=== PATIENT | female | born 1975 | race Caucasian/White ===

== ENCOUNTER 2018-02-26 10:21 | Day surgery (SDC) | payer BC, OTHER ==
[2018-02-26] MEDS ORDERED: PROPOFOL 10 MG/ML VIAL IV ONE (10:22)
[2018-02-26] MEDS ORDERED: MIDAZOLAM HCL 2MG/2ML VIAL IV ONE (10:22)
[2018-02-26] MEDS ORDERED: ROCURONIUM BROMIDE 50MG/5ML VIAL IV ONE (10:22)
[2018-02-26] MEDS ORDERED: SEVOFLURANE 250 ML INH ONE (10:22)
[2018-02-26] MEDS ORDERED: SUCCINYLCHOLINE 20 MG/ML 10ML IVP ONE (10:22)
[2018-02-26] MEDS ORDERED: BUPIVACAINE 0.25% W/EPI MPF 30ML VIAL IVP ONE (10:22)
[2018-02-26] MEDS ORDERED: LIDOCAINE 2% MDV (20MG/ML) 20ML VIAL IV ONE (10:22)
[2018-02-26] MEDS ORDERED: ONDANSETRON HCL IV 4 MG/2 ML VIAL IVP ONE ×2 (10:22→11:50)
[2018-02-26] MEDS ORDERED: FENTANYL PF 100MCG/2ML VIAL IV ONE (10:22)
[2018-02-26] MEDS ORDERED: NEOSTIGMINE 1 MG/1 ML,10ML VIAL IV ONE (10:22)
[2018-02-26] MEDS ORDERED: GLYCOPYRROLATE 0.2 MG/ML ML IV ONE (10:22)
[2018-02-26] MEDS ORDERED: DEXAMETHASONE 4 MG/ML 1ML VIAL IVP ONE (10:22)
[2018-02-26] MEDS ORDERED: ONDANSETRON HCL IV 4 MG/2 ML VIAL IV ONE (10:33)
[2018-02-26] MEDS ORDERED: 0.9 % SODIUM CHLORIDE 1,000 ML BAG IV ONE (10:33)
[2018-02-26] MEDS ORDERED: KETOROLAC 30 MG/ML VIAL IVP ONE (10:35)
--- NOTE | 2018-02-26 10:37 | Emergency Department Record ---
History of Present Illness - General Chief Complaint: Abdominal Pain Stated Complaint: ABD PAIN Time Seen by Provider: 02/26/18 10:29 Source: Patient Mode of Arrival: Ambulatory Limitations: No limitations - History of Present Illness Initial Comments: The patient is here due to AP for 2 days. At the onset 2 days ago the pain was all over and over the last 2 days it has migrated to the RLQ. She did have some loose stools 2 days ago but none since. The patient also felt she had a fever yesterday with mild vomiting. She denies any hx of any abdominal surgeries. The patient was seen at the and was found to have a WBC of 19K so she was sent to the ER for further evaluation. MD Complaint: Abdominal pain Onset/Timin -: Days(s) Location: RLQ Radiation: Back Severity: Moderate Severity scale (1-10): 7 Quality: Cramping, Sharp Consistency: Constant, Intermittent Improves With: Nothing Worsens With: Nothing Associated Symptoms: Chills, Diarrhea, Fever, Nausea, Vomiting - Related Data LMP Date: 02/05/18 Previous Rx's Medication Instructions Recorded Albuterol Sulfate 0.083% [Neb] 3 ml NEB .EVERY 4-6 HOURS PRN #120 16/15 ml Albuterol Sulfate [Proair Hfa] 1 - 2 puff IH .EVERY 4-6 HOURS PRN 04/22/15 #1 inhaler Benzonatate [Tessalon] 1 cap PO Q8H PRN #30 cap 16/15 Allergies Allergy/AdvReac Type Severity Reaction Status Date / Time codeine AdvReac Intermediate VOMITING Verified 02/26/18 11:26 Travel Screening - Travel/Exposure Within Last 30 Days Have you traveled within the last 30 days?: No Review of Systems Constitutional: Denies: Chills, Fever Eyes: Denies: Eye discharge ENT: Denies: Congestion Respiratory: Denies: Cough, Dyspnea Past Medical History - SOCIAL HISTORY Smoking Status: Former smoker Alcohol Use: None Drug Use: None - RESPIRATORY Hx Respiratory Disorders: Yes Hx Asthma: Yes Hx Bronchitis: Yes Hx Pneumonia: Yes - CARDIOVASCULAR Hx Cardio Disorders: No - NEURO Hx Neuro Disorders: No - GI Hx GI Disorders: Yes Hx Irritable Bowel: Yes - Hx Genitourinary Disorders: Yes Hx Kidney Stones: Yes - ENDOCRINE Hx Endocrine Disorders: No - MUSCULOSKELETAL Hx Musculoskeletal Disorders: Yes Hx Arthritis: Yes (low back) Hx Back Injury: Yes - PSYCH Hx Psych Problems: Yes Hx Anxiety: Yes Hx Depression: Yes - HEMATOLOGY/ONCOLOGY Hx Hematology/Oncology Disorders: No Family Medical History Any Significant Family History?: Yes Hx Cancer: Father, Brother/Sister Hx Heart Disease: Grandparents Hx HTN: Grandparents Hx Resp Disorders: Father, Mother, Grandparents Physical Exam - General General Appearance: Alert, Oriented x3, Cooperative, No acute distress - Head Head exam: Atraumatic, Normocephalic, Normal inspection - Eye Eye exam: Normal appearance, PERRL - Neck Neck exam: Normal inspection, Full ROM. negative: Tenderness - Respiratory Respiratory exam: Normal lung sounds bilaterally. negative: Respiratory distress - Cardiovascular Cardiovascular Exam: Regular rate, Normal rhythm, Normal heart sounds - GI/Abdominal GI/Abdominal exam: Diminished bowel sounds, Guarding, Tenderness (There is significant RLQ tenderness.). negative: Normal bowel sounds, Rebound, Rigid - Extremities Extremities exam: Normal inspection, Full ROM, Normal capillary refill. negative: Tenderness - Neurological Neurological exam: Alert. negative: Motor sensory deficit Course Vital Signs 02/26/18 10:25 Temperature 97.8 F Pulse Rate 90 Respiratory 20 Rate Blood Pressure 118/81 Pulse Ox 99 - Reevaluation(s) Reevaluation #1: I did discuss the CT results with the patient and the need for consultation with a gen surgeon. 02/26/18 11:32 Medical Decision Making - Data Complexity MDM Data: Labs Ordered and/or Reviewed, X-Ray Ordered and/or Reviewed - Radiology Data Radiology results: Report reviewed (CT: Positive for Appendicitis. Neg for perforation or abscess.) Disposition Disposition: Admit Clinical Impression: Appendicitis Qualifiers: Appendicitis type: acute appendicitis Acute appendicitis type: unspecified acute appendicitis type Qualified Code(s): K35.80 - Unspecified acute appendicitis Disposition: Still a Patient at [facility] Decision to Admit: Admit from ER Decision to Admit Date: 02/26/18 Decision to Admit Time: 13:20 Accepting Physician: De[place] Time Discussed w/Accepting Physician: 13:20 Condition: (2) Stable Forms: Patient Portal Access Time of Disposition: 13:20 Quality - Quality Measures Quality Measures: N/A - Blood Pressure Screening View Details: Yes Does Patient Have Any of the Following: No Blood Pressure Classification: Pre-Hypertensive BP Reading Systolic Measurement: 118 Diastolic Measurement: 81 Screening for High Blood Pressure: < Pre-Hypertensive BP, F/U Documented > [ G8950] Pre-Hypertensive Follow-up Interventions: Referral to alternative/primary care provider.
[2018-02-26 10:45] LABS: URINE BILIRUBIN NEGATIVE (NEGATIVE); URINE BLOOD NEGATIVE (NEGATIVE); URINE GLUCOSE (UA) NEGATIVE (NEGATIVE); URINE KETONE NEGATIVE (NEGATIVE); URINE LEUKOCYTE ESTERASE NEGATIVE (NEGATIVE); URINE NITRITE NEGATIVE (NEGATIVE); URINE PROTEIN NEGATIVE (NEGATIVE); URINE UROBILINOGEN 0.2 E.U./dL (0.20 - 1.00)
[2018-02-26 10:46] LABS: URINE APPEARANCE CLEAR; URINE COLOR YELLOW
[2018-02-26 10:48] LABS: HCG,QUALITATIVE URINE NEGATIVE (NEGATIVE)
[2018-02-26] MEDS ORDERED: ERTAPENEM SODIUM 1 G in 0.9 % SODIUM CHLORIDE 100ML 100 ML IVPB ONE (11:30)
[2018-02-26] MEDS ORDERED: HYDROMORPHONE HCL 2 MG/ML VIAL IVP ONE (11:50)
--- NOTE | 2018-02-28 09:35 | CT SCAN REPORT ---
EXAM: NONCONTRAST CT OF THE ABDOMEN AND PELVIS HISTORY: ABDOMINAL PAIN AND VOMITING, RIGHT LOWER QUADRANT PAIN. TECHNIQUE: Noncontrast CT of the abdomen and pelvis was obtained. Comparison: None. FINDINGS: Minimal lower lobe atelectasis, the lung bases are otherwise clear. Unremarkable noncontrast CT appearance of the liver, gallbladder, spleen, adrenal glands and pancreas. No hydronephrosis. No renal calculi detected. The appendix is markedly dilated measuring up 20 mm in transverse dimension, contains multiple appendicolith's with significant periappendiceal fat stranding and trace fluid. No associated abscess or free air. Layering trace free fluid in the pelvis. The stomach and small bowel are not dilated. No focal colonic thickening or inflammatory changes. Unremarkable noncontrast CT appearance of the uterus. The urinary bladder is minimally distended. The aortoiliac arterial access is minimally calcified, no evidence of aneurysm. No acute osseous findings. Lumbar spine degenerative changes, evidence of focally prominent disk degeneration at L4-L5. IMPRESSION: ACUTE APPENDICITIS. THE FINDING WAS REPORTED TO THE ORDERING PHYSICIAN DR. KRISTINA ACOSTA AT TIME OF DICTATION. JOB NUMBER: [id number] [facility]
--- NOTE | 2018-02-28 11:40 | Operative Note ---
DATE OF SURGERY: 02/26/2018 Surgeon: Oswaldo Santana D.O. Referring physician: Neptali East D.O. PREOPERATIVE DIAGNOSIS: Acute appendicitis. POSTOPERATIVE DIAGNOSIS: Acute appendicitis, nephrotic appendix. OPERATION: Laparoscopic appendectomy. Anesthesia: General. Indication: The patient is a 42-year-old female who was having about a 2 week history of abdominal pain. She was seen in [facility] ER this afternoon, where a workup was done. This did include imaging, as well as laboratory values. This did show findings consistent with acute appendicitis with an appendicolith. Her clinical exam fit the same. We discussed appendectomy, the risks, benefits, and alternatives were discussed. The risks included bleeding, infection, postop abscess formation, the need for delayed or repeat operation and she understand this fully. The consent was signed, questions were answered. PROCEDURE: She was taken to the operating room and placed in the supine position. General anesthesia was administered per the Department of Anesthesia. The patient's left arm was tucked to her side. Her abdomen was prepped and draped in sterile fashion. The infraumbilical region was anesthetized with a total of 2 mL of 0.25% Sensorcaine with epinephrine. A 2 cm infraumbilical incision was made. This was carried down to the anterior rectus fascia, this is incised. Lizz clamps were placed on the fascial edges and brought up into the wound. Stay stitches of 0 Vicryl placed. The posterior rectus sheath was identified and incised and the peritoneal cavity was entered bluntly. At this time, a 10 mm blunt Ese port was placed and a pneumoperitoneum was established. Under direct visualization, an additional 5 mm right subcostal and a 5 mm suprapubic port were placed. General exam was done. The patient's cecum was stuck to the sidewall, this was peeled down bluntly revealing a dilated thickened necrotic appendix. There was no perforation noted. She did have some purulent fluid in her pelvis. At this time, the appendix was lifted anteriorly. The mesoappendix was taken down serially with the Jacob harmonic. Once the appendicial base was reached, this was transected with the Endo KHURRAM stapling device. This was then placed in an EndoCatch bag and brought out through the umbilical port. The right lower quadrant was rechecked and found to be hemostatic. The staple line was hemostatic, there was no leaking noted. We did irrigate the pelvis with approximately 1 liter of normal saline due to some mild purulent fluid. The patient had a small right ovarian cyst as well. This was then aspirated until clear. The terminal ileum and cecum were inspected again, free of any issues. At this time the pneumoperitoneum was released. All ports removed, and the fascia was closed with 0 Vicryl in a [id number] fashion. The skin of all 3 ports closed with 4-0 Vicryl. She was taken to the recovery room in satisfactory condition. FINDINGS AT THE TIME OF SURGERY: Acute suppurative appendicitis. No ruptured abscess. CC: Dr. Neptali WALKER
== END 2018-02-26 17:08 | disposition home or self-care (01) ==
LOC: ER 10:21 → SUR 13:55
PROVIDERS: ATTEND Surgery
DX: K35.80 Unspecified acute appendicitis (principal); R11.2 Nausea with vomiting, unspecified; R19.7 Diarrhea, unspecified; R50.9 Fever, unspecified; K58.9 Irritable bowel syndrome, unspecified; M19.90 Unspecified osteoarthritis, unspecified site; Z87.891 Personal history of nicotine dependence; Z87.442 Personal history of urinary calculi
CPT/HCPCS: 44970; 00840; 99285 ×2; 96376; 96365; 96375; 82150; 83690; 80053; 81003; 81025; 85027; 74176; J1335; J1885; J2405; J3010; J1170; J0330; J2710; J7030

== ENCOUNTER 2018-10-12 21:01 | Emergency (ER) | payer BC ==
[2018-10-12] MEDS ORDERED: ACETAMINOPHEN 500 MG TABLET PO ONE (21:05)
[2018-10-12] MEDS ORDERED: Diph,Pert(Acell),Tet Vac 0.5 ML SYR IM ONE (21:11)
--- NOTE | 2018-10-12 21:21 | Emergency Department Record ---
History of Present Illness - General Chief Complaint: Laceration(s) Stated Complaint: HEAD INJURY Time Seen by Provider: 10/12/18 21:05 Source: Patient, Family Mode of Arrival: Ambulatory Limitations: No limitations - History of Present Illness Initial Commments: 42 yo female presents after a fall running. She hit her forehead and has a laceration. She has a headache. No LOC. No neck pain. No nausea or vomiting. She does not have any other pain. No syncope. No recent illness. No pain or tingling down the arms or legs. Onset/Timin -: Minutes(s) Location: Face Place: Outdoors Context: Accidental Associated Symptoms: None Treatments Prior to Arrival: Bandage, Other - Eric Coma Scale Eye Response: (4) Open spontaneously Motor Response: (6) Obeys commands Verbal Response: (5) Oriented [place] Total: 15 - Related Data Hx Tetanus Toxoid Vaccination: No Patient Tetanus UTD (within 5 yrs): No Previous Rx's Medication Instructions Recorded Albuterol Sulfate 0.083% [Neb] 3 ml NEB .EVERY 4-6 HOURS PRN #120 04/22/15 [Albuterol Sulfate] ml Albuterol Sulfate [Proair Hfa] 1 - 2 puff IH .EVERY 4-6 HOURS PRN 04/22/15 #1 inhaler Benzonatate [Tessalon] 1 cap PO Q8H PRN #30 cap 04/22/15 Allergies Allergy/AdvReac Type Severity Reaction Status Date / Time codeine AdvReac Intermediate VOMITING Verified 02/26/18 11:26 Travel Screening - Travel/Exposure Within Last 30 Days Have you traveled within the last 30 days?: No - Travel Symptoms Symptom Screening: Headache Review of Systems Constitutional: Denies: Chills, Fever, Malaise, Weakness Eyes: Denies: Eye discharge, Photophobia, Vision change ENT: Denies: Congestion, Throat pain Respiratory: Denies: Cough, Dyspnea Cardiovascular: Denies: Chest pain, Syncope Endocrine: Denies: Fatigue Gastrointestinal: Denies: Abdominal pain, Diarrhea, Nausea, Vomiting Genitourinary: Denies: Dysuria Musculoskeletal: Denies: Arthralgia, Back pain, Joint swelling, Myalgia Skin: Denies: Bruising, Change in color, Rash Neurological: Reports: Headache. Denies: Abnormal gait, Confusion, Numbness, Paresthesias, Seizure, Tingling, Tremors, Vertigo, Weakness Psychiatric: Denies: Anxiety Hematological/Lymphatic: Denies: Blood Clots, Easy bleeding, Easy bruising Past Medical History - SOCIAL HISTORY Smoking Status: Former smoker Alcohol Use: None Drug Use: None - RESPIRATORY Hx Respiratory Disorders: Yes Hx Asthma: Yes Hx Bronchitis: Yes Hx Pneumonia: Yes - CARDIOVASCULAR Hx Cardio Disorders: No - NEURO Hx Neuro Disorders: No Hx of Migraines: Yes (daily) Comment:: arachnoid cyst lesions on white matter seeing neuro - GI Hx GI Disorders: Yes Hx Irritable Bowel: Yes - Hx Genitourinary Disorders: Yes Hx Kidney Stones: Yes - ENDOCRINE Hx Endocrine Disorders: No - MUSCULOSKELETAL Hx Musculoskeletal Disorders: Yes Hx Arthritis: Yes (low back) Hx Back Injury: Yes - PSYCH Hx Psych Problems: Yes Hx Anxiety: Yes Hx Depression: Yes - HEMATOLOGY/ONCOLOGY Hx Hematology/Oncology Disorders: No Family Medical History Any Significant Family History?: Yes Hx Cancer: Father, Brother/Sister Hx Heart Disease: Grandparents Hx HTN: Grandparents Hx Resp Disorders: Father, Mother, Grandparents Physical Exam - General General Appearance: Alert, Oriented x3, Cooperative, No acute distress Limitations: No limitations - Head Head exam: negative: Atraumatic Head exam detail: Laceration (4.5cm). negative: Abrasion, Contusion, [place] eyes - Eye Eye exam: Normal appearance, PERRL, EOMI. negative: Conjunctival injection, Periorbital swelling, Periorbital tenderness, Scleral icterus - ENT ENT exam: Normal exam, Mucous membranes moist Ear exam: Normal external inspection Nasal Exam: Normal inspection Mouth exam: Normal external inspection - Neck Neck exam: Normal inspection - Respiratory Respiratory exam: Normal lung sounds bilaterally. negative: Respiratory distress - Cardiovascular Cardiovascular Exam: Regular rate, Normal rhythm, Normal heart sounds - GI/Abdominal GI/Abdominal exam: Soft. negative: Distended, Guarding, Tenderness - Rectal Rectal exam: Deferred - exam: Deferred - Extremities Extremities exam: Normal inspection, Full ROM. negative: Pedal edema, Tenderness - Back Back exam: Denies: CVA tenderness (R), CVA tenderness (L), Paraspinal tenderness, Tenderness, Vertebral tenderness - Neurological Neurological exam: Alert, CN II-XII intact, Normal gait, Oriented X3. negative: Motor sensory deficit - Psychiatric Psychiatric exam: Normal affect, Normal mood. negative: Agitated, Anxious - Skin Type of lesion: Laceration Course Vital Signs 10/12/18 21:04 Temperature 98.2 F Pulse Rate [ 92 H Pulse Ox Probe] Respiratory 20 Rate Blood Pressure 157/102 [Left Arm] Pulse Ox 99 - Reevaluation(s) Reevaluation #1: Vitals reviewed. No acute changes The tetanus will be updated The wound was cleaned CT ordered based on the mechanism 10/12/18 21:15 Procedure: 4.5 cm laceration of the forehead Wound was cleaned and prepped in sterile fashion, no residual FB identified on examination. The wound was copiously irrigated with NS pressure flushing Wound was anesthetized with 2.5 mL of 1% Lidocaine with epinephrine The laceration was repaired with 8 sutures in interrupted fashion. 6-0 Prolene The medial 1 cm was not and no sutures were required Patient tolerated the procedure well without complications. We discussed home care, concussion signs, reasons for immediate return if any concerns with wound healing, and suture removal in 6 days 10/12/18 21:46 The HCT was read as negative 10/12/18 22:01 Disposition Disposition: Discharge Clinical Impression: Forehead laceration Qualifiers: Encounter type: initial encounter Qualified Code(s): S01.81XA - Laceration without foreign body of other part of head, initial encounter Disposition: Home, Self-Care Condition: (1) Good Instructions: Laceration (ED), Concussion (ED) Additional Instructions: Clean the laceration twice daily with gentle soap and water Keep dry and clean Return in 6 days for suture removal Return sooner if pain, pus, redness, fever or concerns with infection Return if have severe headache, dizziness, nausea or vomiting. You may take tylenol or motrin for mild headaches Forms: Patient Portal Access Time of Disposition: 21:48 Quality - Quality Measures Quality Measures: N/A - Blood Pressure Screening Does Patient Have Any of the Following: No Blood Pressure Classification: Pre-Hypertensive BP Reading Systolic Measurement: 134 Diastolic Measurement: 78 Screening for High Blood Pressure: < Pre-Hypertensive BP, F/U Documented > [G8950] Pre-Hypertensive Follow-up Interventions: Referral to alternative/primary care provider.
--- NOTE | 2018-10-15 21:48 | CT SCAN REPORT ---
EXAM: CT SCAN HEAD WO CONTRAST HISTORY: FALL WITH TRAUMA TO FOREHEAD. DENIES LOSS OF CONSCIOUSNESS. TECHNIQUE: Routine noncontrast CT of the brain. COMPARISON: None. FINDINGS: The ventricles and subarachnoid spaces are normal in size. No area of abnormally increased or decreased or attenuation is noted throughout the brain substance. The farnsworth-white interfaces are distinct. No abnormal extraaxial fluid collection is demonstrated. No skull fracture is demonstrated. There is linear lucent defect within the anterior frontal scalp near the midline consistent with laceration. No foreign body nor gross cephalohematoma. There is minor mucosal thickening within the medial aspect of the left frontal sinus. The paranasal sinuses and mastoid air cells are otherwise clear. The orbits as visualized are unremarkable. IMPRESSION: 1. NO ACUTE INTRACRANIAL ABNORMALITY NOR SKULL FRACTURE. 2. LACERATION INVOLVING THE ANTERIOR FRONTAL SCALP WITHOUT ASSOCIATED FOREIGN BODY. 3. MILD MUCOSAL THICKENING IN THE LEFT FRONTAL SINUS. JOB NUMBER: [id number] [facility]
== END 2018-10-12 21:55 | disposition home or self-care (01) ==
LOC: ER 21:01
DX: S01.81XA Laceration without foreign body of other part of head, initial encounter (principal); W18.39XA Other fall on same level, initial encounter; Y93.02 Activity, running; Y92.480 Sidewalk as the place of occurrence of the external cause; S06.0X9A Concussion with loss of consciousness of unspecified duration, initial encounter; Z87.891 Personal history of nicotine dependence
CPT/HCPCS: 12002; 70450; 90715; 96372; 99283; 99284

== ENCOUNTER 2018-10-18 12:58 | Emergency (ER) | payer BC ==
--- NOTE | 2018-10-18 13:19 | Emergency Department Record ---
History of Present Illness - General Chief Complaint: Suture removal Stated Complaint: REMOVE STITCHES Time Seen by Provider: 10/18/18 13:01 Source: Patient Mode of arrival: Ambulatory Limitations: No limitations - History of Present Illness Initial Comments: The patient is here for suture removal. She denies any problems or pain. Complaint: Suture/staple removal Onset/Timin -: Days(s) Initial Visit For: Laceration Returns Today for: Staple/stitch removal Symptoms Since Prior Visit: No new symptoms, Improved Associated Symptoms: None - Related Data Previous Rx's Medication Instructions Recorded Albuterol Sulfate 0.083% [Neb] 3 ml NEB .EVERY 4-6 HOURS PRN #120 04/22/15 [Albuterol Sulfate] ml Albuterol Sulfate [Proair Hfa] 1 - 2 puff IH .EVERY 4-6 HOURS PRN 04/22/15 #1 inhaler Benzonatate [Tessalon] 1 cap PO Q8H PRN #30 cap 04/22/15 Allergies Allergy/AdvReac Type Severity Reaction Status Date / Time codeine AdvReac Intermediate VOMITING Verified 10/18/18 13:02 Travel Screening - Travel/Exposure Within Last 30 Days Have you traveled within the last 30 days?: No - Travel/Exposure Within Last Year Have you traveled outside the [place] in the last year?: No - Additonal Travel Details Have you been exposed to anyone with a communicable illness?: No - Travel Symptoms Symptom Screening: None Past Medical History - SOCIAL HISTORY Smoking Status: Former smoker Alcohol Use: None Drug Use: None - RESPIRATORY Hx Respiratory Disorders: Yes Hx Asthma: Yes Hx Bronchitis: Yes Hx Pneumonia: Yes - CARDIOVASCULAR Hx Cardio Disorders: No - NEURO Hx Neuro Disorders: No Hx of Migraines: Yes (daily) Comment:: arachnoid cyst lesions on white matter seeing neuro - GI Hx GI Disorders: Yes Hx Irritable Bowel: Yes - Hx Genitourinary Disorders: Yes Hx Kidney Stones: Yes - ENDOCRINE Hx Endocrine Disorders: No - MUSCULOSKELETAL Hx Musculoskeletal Disorders: Yes Hx Arthritis: Yes (low back) Hx Back Injury: Yes - PSYCH Hx Psych Problems: Yes Hx Anxiety: Yes Hx Depression: Yes - HEMATOLOGY/ONCOLOGY Hx Hematology/Oncology Disorders: No Family Medical History Any Significant Family History?: Yes Hx Cancer: Father, Brother/Sister Hx Heart Disease: Grandparents Hx HTN: Grandparents Hx Resp Disorders: Father, Mother, Grandparents Physical Exam - General General Appearance: Alert, Oriented x3, Cooperative, No acute distress - Head Head exam: Normocephalic (The forehead laceration appears very well healed. The sutures were removed without problems.). negative: Atraumatic Course Vital Signs 10/18/18 13:03 Temperature 98.3 F Pulse Rate 73 Respiratory 18 Rate Blood Pressure 128/77 Pulse Ox 99 Disposition Disposition: Discharge Clinical Impression: Encounter for removal of sutures Disposition: Home, Self-Care Condition: (2) Stable Instructions: Stitches Removal (ED) Additional Instructions: Return to the ER for any problems. Forms: Patient Portal Access Time of Disposition: :19 Quality - Quality Measures Quality Measures: N/A - Blood Pressure Screening View Details: Yes Does Patient Have Any of the Following: No Blood Pressure Classification: Pre-Hypertensive BP Reading Systolic Measurement: 128 Diastolic Measurement: 77 Screening for High Blood Pressure: < Pre-Hypertensive BP, F/U Documented > [G8950] Pre-Hypertensive Follow-up Interventions: Referral to alternative/primary care provider.
== END 2018-10-18 13:25 | disposition home or self-care (01) ==
LOC: ER 12:58
DX: Z48.02 Encounter for removal of sutures (principal)

== ENCOUNTER 2019-06-29 12:02 | Emergency (ER) | payer BC ==
[2019-06-29] MEDS ORDERED: IPRATROPIUM/ALBUTEROL (0.5MG/3MG) NEB INH ONE (12:20)
[2019-06-29] MEDS ORDERED: ALBUTEROL (0.5% CONCENTRATED) 2.5 MG/0.5 ML VIAL.NEB INH ONE (12:20)
[2019-06-29] MEDS ORDERED: METHYLPREDNISOLONE PF 125MG/VIAL IM ONE (12:26)
--- NOTE | 2019-06-29 13:12 | RADIOLOGY REPORT ---
EXAMINATION: Two View Chest Radiographs EXAM DATE: 06/29/2019 12:55 PM TECHNIQUE: Frontal and lateral views INDICATION: sob COMPARISON: April 22, 2015 ENCOUNTER: Not applicable FINDINGS: The heart, mediastinum, and pulmonary vasculature are normal. No lung consolidation or pleural effu sions are present. IMPRESSION: No acute process. Dictated by: Fer Mcclelland DO on 06/29/2019 1:10 PM. .
--- NOTE | 2019-06-29 13:30 | Emergency Department Record ---
History of Present Illness - General Chief Complaint: Shortness of breath Stated Complaint: TARAS Time Seen by Provider: 06/29/19 12:22 Source: Patient Mode of Arrival: Ambulatory Limitations: No limitations - History of Present Illness Initial Comments: pt has been dxd with flu a and b for 4 days. she now feels her asthma acting up and feels increasingly sob. MD Complaint: Shortness of breath Onset/Timin -: Days(s) Severity: Moderate Severity scale (1-10): 1 Quality: Aching Consistency: Getting worse Worsens With: Coughing Known History Of: Asthma Associated Symptoms: Cough Treatments Prior to Arrival: Bronchodilator - Related Data Previous Rx's Medication Instructions Recorded Albuterol Sulfate 0.083% [Neb] 3 ml NEB .EVERY 4-6 HOURS PRN #120 04/22/15 [Albuterol Sulfate] ml Albuterol Sulfate [Proair Hfa] 1 - 2 puff IH .EVERY 4-6 HOURS PRN 04/22/15 #1 inhaler Allergies Allergy/AdvReac Type Severity Reaction Status Date / Time codeine AdvReac Intermediate VOMITING Verified 06/29/19 12:14 Travel/Exposure Screening - Travel/Exposure Within Last 30 Days Have you traveled within the last 30 days?: No - Travel/Exposure Within Last Year Have you traveled outside the [place] in the last year?: No - Additonal Travel/Exposure Details Have you been exposed to anyone with a communicable illness?: No - Travel Symptoms Symptom Screening: None Review of Systems Reviewed: No additional complaints except as noted below Constitutional: Reports: As per HPI, Fever, Malaise, Weakness. Denies: Chills, Night sweats, Weight change Eyes: Reports: As per HPI. Denies: Eye discharge, Eye pain, Photophobia, Vision change ENT: Reports: As per HPI. Denies: Congestion, Dental pain, Ear pain, Epistaxis, Hearing loss, Throat pain Respiratory: Reports: As per HPI, Cough, Dyspnea. Denies: Hemoptysis, Stridor, Wheezes Cardiovascular: Reports: As per HPI. Denies: Arrhythmia, Chest pain, Dyspnea on exertion, Edema, Murmurs, Orthopnea, Palpitations, Paroxysmal nocturnal dyspnea, Rheumatic Fever, Syncope Endocrine: Reports: As per HPI. Denies: Fatigue, Heat or cold intolerance, Polydipsia, Polyuria Gastrointestinal: Reports: As per HPI. Denies: Abdominal pain, Constipation, Diarrhea, Hematemesis, Hematochezia, Melena, Nausea, Vomiting Genitourinary: Reports: As per HPI. Denies: Abnormal menses, Discharge, Dyspareunia, Dysuria, Frequency, Hematuria, Incontinence, Retention, Urgency Musculoskeletal: Reports: As per HPI. Denies: Arthralgia, Back pain, Gout, Joint swelling, Myalgia, Neck pain Skin: Reports: As per HPI. Denies: Bruising, Change in color, Change in hair/nails, Lesions, Pruritus, Rash Neurological: Reports: As per HPI. Denies: Abnormal gait, Confusion, Headache, Numbness, Paresthesias, Seizure, Tingling, Tremors, Vertigo, Weakness Psychiatric: Reports: As per HPI. Denies: Anxiety, Auditory hallucinations, Depression, Homicidal thoughts, Suicidal thoughts, Visual hallucinations Hematological/Lymphatic: Reports: As per HPI. Denies: Anemia, Blood Clots, Easy bleeding, Easy bruising, Swollen glands Past Medical History - SOCIAL HISTORY Smoking Status: Former smoker Alcohol Use: None Drug Use: None - RESPIRATORY Hx Respiratory Disorders: Yes Hx Asthma: Yes Hx Bronchitis: Yes Hx Pneumonia: Yes - CARDIOVASCULAR Hx Cardio Disorders: No - NEURO Hx Neuro Disorders: No Hx of Migraines: Yes (daily) Comment:: arachnoid cyst lesions on white matter seeing neuro - GI Hx GI Disorders: Yes Hx Irritable Bowel: Yes - Hx Genitourinary Disorders: Yes Hx Kidney Stones: Yes - ENDOCRINE Hx Endocrine Disorders: No - MUSCULOSKELETAL Hx Musculoskeletal Disorders: Yes Hx Arthritis: Yes (low back) Hx Back Injury: Yes - PSYCH Hx Psych Problems: Yes Hx Anxiety: Yes Hx Depression: Yes - HEMATOLOGY/ONCOLOGY Hx Hematology/Oncology Disorders: No Family Medical History Any Significant Family History?: Yes Hx Cancer: Father, Brother/Sister Hx Heart Disease: Grandparents Hx HTN: Grandparents Hx Resp Disorders: Father, Mother, Grandparents Physical Exam - General General Appearance: Alert, Oriented x3, Cooperative, Mild distress - Head Head exam: Normal inspection - Eye Eye exam: Normal appearance, PERRL, EOMI Pupils: Normal accommodation - ENT ENT exam: Normal exam, Mucous membranes moist, Normal external ear exam, Normal orophraynx Ear exam: Normal external inspection. negative: External canal tenderness Nasal Exam: Normal inspection. negative: Discharge, Sinus tenderness Mouth exam: Normal external inspection, Tongue normal Teeth exam: Normal inspection. negative: Dental caries Throat exam: Normal inspection. negative: Tonsillar erythema, Tonsillar exudate - Neck Neck exam: Normal inspection, Full ROM. negative: Tenderness - Respiratory Respiratory exam: Wheezes. negative: Respiratory distress - Cardiovascular Cardiovascular Exam: Normal rhythm, Normal heart sounds, Tachycardia - GI/Abdominal GI/Abdominal exam: Soft, Normal bowel sounds. negative: Tenderness - Rectal Rectal exam: Deferred - exam: Deferred - Extremities Extremities exam: Normal inspection, Full ROM, Normal capillary refill. negative: Tenderness - Back Back exam: Reports: Normal inspection, Full ROM. Denies: Muscle spasm, Rash noted, Tenderness - Neurological Neurological exam: Alert, CN II-XII intact, Normal gait, Oriented X3 - Psychiatric Psychiatric exam: Normal affect, Normal mood - Skin Skin exam: Dry, Intact, Normal color, Warm Course Vital Signs 06/29/19 06/29/19 12:15 13:20 Temperature 98.5 F Pulse Rate 99 H Pulse Rate [ 110 H 101 H Left] Respiratory 22 16 Rate Blood Pressure 143/89 132/75 [Right Arm] Pulse Ox 98 96 - Reevaluation(s) Reevaluation #1: 06/29/19 13:33 pt feels better Disposition Disposition: Discharge Clinical Impression: Influenza Asthma Qualifiers: Asthma severity: mild Asthma persistence: intermittent Asthma complication type: with acute exacerbation Qualified Code(s): J45.21 - Mild intermittent asthma with (acute) exacerbation Disposition: Home, Self-Care Condition: (1) Good Instructions: Asthma (ED), Influenza (ED) Additional Instructions: follow up with family doctor. return sooner if worse Forms: Patient Portal Access Quality - Quality Measures Quality Measures: N/A - Blood Pressure Screening Does Patient Have Any of the Following: No Blood Pressure Classification: Pre-Hypertensive BP Reading Systolic Measurement: 132 Diastolic Measurement: 75 Screening for High Blood Pressure: < Pre-Hypertensive BP, F/U Documented > [[id number]] Pre-Hypertensive Follow-up Interventions: Follow-up with rescreen every year.
== END 2019-06-29 13:47 | disposition home or self-care (01) ==
LOC: ER 12:02
DX: J10.1 Influenza due to other identified influenza virus with other respiratory manifestations (principal); R06.02 Shortness of breath
CPT/HCPCS: 71046; 94640; 96372; 99284; J2930